=== PATIENT | male | born 1985 | race Caucasian/White ===

== ENCOUNTER 2017-04-06 18:54 | Emergency (ER) | payer OTHER ==
[~2017-04-06] VITALS: Ht 182.9 cm; Wt 108.2 kg
[2017-04-06 19:17] VITALS: BP 115/76; PULSE 81; RESP 16; O2SAT 97
--- NOTE | 2017-04-06 19:41 | ED.REPORT ---
HPI-Extremity Problem Upper Date of Service Apr 06, 2017 ED Provider: José Julien MD Pt is a healthy 31 y/o male presenting to the ED due to left hand laceration which occurred at 18:30. The patient was throwing away a tuna can and was smashing it into the garbage and cut his left hand. Last tdap >10 years ago. He denies numbness, weakness, any other symptoms. Nursing Notes Stated Complaint: HAND LACERATION Chief Complaint: Extremity Trauma Nursing Notes Reviewed: Yes Allergies: Coded Allergies: No Known Allergies (Unverified , 01/06/16) General Time Seen by MD: 19:39 Chief Complaint Hand Injury left Hx Obtained From: Patient Arrived By: Walk-in Onset Occurred: 1 - 4 hours ago Symptom Duration: Since onset Caused by: Accidental Location: : Hand left Quality: Painful Severity: Current: Mild Severity: Maximum: Mild Recent Healthcare: No recent doctor visit, No recent hospitalization Similar Sx Previous: No Past Medical History Past Medical History Denies Past Surgical History None reported Family History noncontributory Smoking History Never Smoker Social History Other Social History: Local resident Occupation [employer] Ambulatory Status Independent Review of Systems Musculoskeletal: Reports: Extremity pain, Denies: Extremity swelling Complete sys rev & neg: except as marked. Physical Exam Initial Vital Signs Vital Signs (First) Date Time Temp Pulse Resp B/P Pulse Ox O2 Delivery O2 Flow Rate FiO2 04/06/17 19:17 37 81 16 115/76 97 Room Air Initial VS: Reviewed, Vital signs normal Head / Eyes: Atraumatic, Normocephalic, PERRL ENT: Mucous membranes moist, Conjunctiva normal, No scleral icterus Neck: Supple, Full range of motion Respiratory: No respiratory distress Cardiovascular: Intact distal pulses Abdomen / GI: Soft, No distention Lower Extremities: Vascular intact, Neuro intact, No swelling Skin: Warm, Dry, No cyanosis Neurologic: Alert, Oriented, Nonfocal Psychiatric: Mood/affect normal, Behavior normal, Normal thought content General/Constitutional: Awake, Alert, No acute distress, Well appearing, Cooperative, Not toxic appearing Wrist / Hand: Full range of motion, No deformity, Neurologic intact, Vascular intact, No ligamentous injury, Tendon function NL, No compartment syndrome, No circumferential injury, No clubbing/cyanosis, No edema 0.5 cm laceration about webspace between left 4th and 5th finger. Superficial and oozing blood. No FB. No exposed neurovascular or ligamentous structures. Re-Eval/Medical Decision Med Decision/Clinical Course Pt is a healthy 31 y/o male presenting to the ED due to left hand laceration which occurred at 18:30. The patient was throwing away a tuna can and was smashing it into the garbage and cut his left hand. Last tdap >10 years ago. He denies numbness, weakness, any other symptoms. Here in the emergency department the patient is afebrile stable vital signs and examination as above. The patient is neurovascularly intact distal to the injury. There is no foreign body. The laceration is relatively superficial and involving the intertriginous web space. I do not feel that sutures are likely to be of much use. Wound was copiously irrigated and the patient's tetanus status was updated. A sterile dressing was placed over the wound and he is advised to return right away for any signs of infection. Prior to discharge follow-up and return precautions were reviewed in detail with the patient who verbalized understanding and agreement with the plan. The patient was discharged in stable condition. Re-Evaluation/Progress : Time of Eval: 19:46 Re-Evaluation/Progress Note: Pt rechecked. Informed pt of plan for treatment. Pt understands and agrees with plan for treatment. F/U instructions and RTER warnings given. All questions addressed. Counseled Regarding: Diagnosis, Need for follow-up, When/why to return to ED Discharge & Departure Impression: Primary Impression: Laceration of left hand Encounter type: initial encounter Foreign body presence: without foreign body Qualified Code: S61.412A - Laceration without foreign body of left hand, initial encounter Additional Impression: Left hand pain Disposition: Home Discharge Condition All VS Reviewed: Yes Condition: Stable Patient Instructions: Facial Laceration (ED) Additional Instructions: Keep the wound clean, dry, and covered. See a medical professional if you develop signs of infection: redness, swelling , pain, discharge of pus, decreased range of motion, fever, or for other concerning symptoms. Referrals: Dale Wetzel MD (PCP) Scribe Attestation Portions of this note were transcribed by Terrence Hicks. I, Dr. Julien, personally performed the history, physical exam and medical decision-making; I reviewed and confirmed the accuracy of the information in the transcribed note. Signed by Mary Castillo, 04/06/171949 copies to: Dale Wetzel MD, Beck O MD Apr 06, 2017 19:41 TERRENCE HICKS Apr 06, 2017 19:48
== END 2017-04-06 20:22 | disposition home or self-care (01) ==
LOC: SED 18:54
DX: S61.412A Laceration without foreign body of left hand, initial encounter (principal); W26.8XXA Contact with other sharp object(s), not elsewhere classified, initial encounter; Y93.89 Activity, other specified; Y92.009 Unspecified place in unspecified non-institutional (private) residence as the place of occurrence of the external cause; Y99.8 Other external cause status; M79.642 Pain in left hand